=== PATIENT | female | born 1965 | race Caucasian/White ===

== ENCOUNTER 2021-08-26 15:52 | Emergency (ER) | payer SELFPAY ==
[~2021-08-26] VITALS: Ht 154.9 cm; Wt 81.6 kg
[2021-08-26] MEDS ORDERED: ONDANSETRON HCL INJ 2MG/ML 2ML 2 MG/ML VIAL IV STA (16:11)
[2021-08-26] MEDS ORDERED: SODIUM CHLORIDE 0.9% 1000ML 1,000 ML IV ONE (16:15)
[2021-08-26] MEDS ORDERED: FOLIC ACID 5 MG/ML VIAL IV ONE (16:15)
[2021-08-26] MEDS ORDERED: THIAMINE HCL INJ 100 MG/ML 2ML VIAL IV ONE (16:15)
[2021-08-26 16:28] LABS: BASOPHILS # (AUTO) 0.1 (0.0-0.1); BASOPHILS % 1.2 % (0.0-1.0); HEMATOCRIT 42.2 % (34.2-44.1); HEMOGLOBIN 14.4 g/dL (12.0-16.0); LYMPHOCYTES # (AUTO) 1.4 (1.0-3.2); LYMPHOCYTES % 23.1 % (18.0-39.1); MEAN CORPUSCULAR HEMOGLOBIN 31.1 pg (28-32); MEAN CORPUSCULAR HGB CONC 34.1 g/dL (31-35); MEAN CORPUSCULAR VOLUME 91.1 fL (81-99); MONOCYTES # (AUTO) 0.3 (0.2-0.8); MONOCYTES % 4.4 % (4.4-11.3); NEUTROPHILS # (AUTO) 4.2 (2.1-6.9); NEUTROPHILS % 70.6 % (38.7-80.0); PLATELET COUNT 278 x10e3/uL (140-360); RED BLOOD COUNT 4.63 x10e6/uL (3.6-5.1); RED CELL DISTRIBUTION WIDTH 12.8 % (11.7-14.4)
[2021-08-26 16:37] LABS: CLARITY,URINE CLOUDY (CLEAR); COLOR,URINE YELLOW (YELLOW); LEUKOCYTE ESTERASE ,URINE MODERATE (NEGATIVE); NITRITE,URINE NEGATIVE (NEGATIVE)
[2021-08-26 16:38] LABS: AMPHETAMINES SCREEN,URINE NEGATIVE (NEGATIVE); BENZODIAZEPINES SCREEN,URINE NEGATIVE (NEGATIVE); KETONES,URINE 2+ (NEGATIVE); PHENCYCLIDINE SCREEN,URINE NEGATIVE (NEGATIVE); PROTEIN,URINE DIPSTICK 1+ (NEGATIVE); URINE UROBILINOGEN 0.2 mg/dL (0.2 - 1)
[2021-08-26 16:45] LABS: ALBUMIN 3.4 g/dL (3.5-5.0); ALBUMIN/GLOBULIN RATIO 1.1 (0.8-2.0); ANION GAP 22.3 mmol/L (8-16); CALCIUM 7.1 mg/dL (8.4-10.2); CREATININE, SERUM 0.69 mg/dL (0.57-1.11); POTASSIUM 3.3 mmol/L (3.5-5.1)
[2021-08-26 16:53] LABS: WBC,URINE (MAN) >50 /HPF (0-5)
[2021-08-26 16:54] LABS: BACTERIA,URINE MANY /HPF
[2021-08-26 16:55] LABS: EPITHELIAL CELLS,URINE FEW /LPF; RENAL EPITHELIAL CELLS,URINE FEW; TRANSITIONAL EPI CELLS,URINE FEW
[2021-08-26] MEDS ORDERED: MULTIVITAMINS- 12 INJECTION 10 ML, FOLIC ACID MDV 1 MG, THIAMINE HCL INJ 100 MG in SODI... IV ONE (17:00)
[2021-08-26 17:15] LABS: SALICYLATE < 5.0 mg/dL (0-30)
[2021-08-27] MEDS ORDERED: CHLORDIAZEPOXIDE HCL 25 MG CAP PO ONE (03:00)
[2021-08-27] MEDS ORDERED: CHLORDIAZEPOXID25 MG PO ×2 (03:11→05:27)
[2021-08-27] MEDS ORDERED: IBUPROFEN 600 MG TAB PO STA (04:16)
[2021-08-27 05:22] VITALS: BP 150/94
== END 2021-08-27 05:45 | disposition home or self-care (01) ==
LOC: ER 16:40
DX: F10.129 Alcohol abuse with intoxication, unspecified (principal); R41.82 Altered mental status, unspecified
CPT/HCPCS: 0223U; 36415; 70450; 80053; 80307; 80320; 80329 ×2; 81001; 82948; 85025; 99284; J3411; J7030